=== PATIENT | male | born 1965 | race Caucasian/White ===

== ENCOUNTER → 2017-04-13 13:02 | Outpatient (CLI) | payer MEDICARE, MEDICAID | END | disposition home or self-care (01) | LOC: D.CT 13:00 | DX: R10.84 Generalized abdominal pain (principal) ==

== ENCOUNTER 2017-04-27 13:37 | Observation (INO) | payer MEDICARE, MEDICAID ==
[~2017-04-27] VITALS: Ht 177.8 cm; Wt 174.2 kg
--- NOTE | ~2017-04-27 | HEMODYNAMI ---
PATIENT:TOMAS COOPER MEDICAL RECORD: [id number] : 67 [facility] ADMISSION DATE: 04/27/17 Generatedon:04/28/201710:39 Patient name: TOMAS COOPER Patient #: [id number] SSN: D OB: 1965 Date of study: 04/28/2017 Page: Of Hemodynamic Procedure Report Patient Data Patient Demographics Procedure consent was obtained First Name: TOMAS Gender: Male Last Name: KENNETH : 1965 [facility] Initial: FREDERIC Age: 51 year(s) Patient #: [id number] Race: Unknown Additional ID: [id number] Contact details Address: [address] [place] [address] State: [place] City: [place] Zip code: [address] Past Medical History Allergies Allergen Reaction Date Comments Reported Penicillins 04/28/2017 Admission Admission Data Admission Date: 04/27/2017 Admission Time: 17:42 Room #: 2117 Procedure Procedure Types Cath Procedure Diagnostic Procedure [facility] w/Coronaries FFR/IVUS Intra-Coronary IVUS Initial PCI Procedure Coronary Stent Initial x2 Miscellaneous Procedures Moderate Sedation up to 45 minutes Procedure Description Procedure Date Procedure Date: 04/28/2017 Procedure Start Time: 10:05 Procedure End Time: 10:39 Procedure Staff Name Function Maico Chandler MD Performing Physician Naima Mcgovern RT Scrub Luis Garcia RT Scrub Sami Rodriguez RN Nurse Amita Montez RT Monitor Procedure Data Cath Procedure Fluoroscopy Diagnostic fluoroscopy Total fluoroscopy Time: 9.4 time: 9.4 min min Diagnostic fluoroscopy Total fluoroscopy dose: dose: 1452 mGy 1452 mGy Contrast Material Contrast Material Type Amount (ml) Isovue 300 165 Entry Location Entry Primary Successful Side Size Upsize Upsize Entry Closure Irvin ccessful Closure Location (Fr) 1 (Fr) 2 (Fr) Remarks Device Remarks Radial Right 6 Fr Mechanical artery Short Compression Estimated blood loss: 10 ml Diagnostic catheters Device Type Used For End Catheter Placement Diagnostic Terumo 5Fr LV Angiography [place] 110cm catheter Diagnostic Terumo 5Fr Left Coronary [place] 110cm catheter Angiography Diagnostic Terumo 5Fr Right Coronary [place] 110cm catheter Angiography Procedure Complications No complications Procedure Medications Medication Administration Route Dosage 0.9% NaCl I.V. 100 ml/hr Oxygen NC 2 l/min Heparin Flush Bag added to field 2 bags (1000units/500ml NS) Lidocaine 2% added to field 20 Versed I.V. 1 mg Fentanyl I.V. 50 mcg Versed I.V. 1 mg Fentanyl I.V. 50 mcg Radial Cocktail added to field 1 syringe (Verapomil 2mg/Nitro 400mcg/Heparin 1500units) Radial Cocktail I.A. 1 syringe (Verapomil 2mg/Nitro 400mcg/Heparin 1500units) Heparin Bolus I.V. 4000 units Integrilin (Bolus I.V. 9.5 ml 2mg/ml) Hemodynamics Rest Heart Rate: 53 (bpm) Snapshots Pre Cath Intra NCS Post Cath Vital Signs Time Heart Resp SPO2 etCO2 UE5hcml NIBP (mmHg) Rhythm Pain Sedation Rate (ipm) (%) (mmHg) (mmHg) Status Level (bpm) 9:30:15 53 13 99 0 0 233/92(146) NSR 0 (11) 10(A) , No pain 9:35:38 55 19 100 0 0 226/97(151) NSR 0 (11) 10(A) , No pain 9:40:52 50 17 98 0 0 194/86(133) NSR 0 (11) 10(A) , No pain 9:45:57 53 17 97 0 0 185/87(128) NSR 0 (11) 10(A) , No pain 9:52:05 53 16 97 0 0 206/82(119) NSR 0 (11) 10(A) , No pain 9:57:15 54 16 97 0 0 197/89(141) NSR 0 (11) 10(A) , No pain 10:02:26 52 14 97 0 0 213/91(127) NSR 0 (11) 10(A) , No pain 10:07:42 72 15 98 0 0 203/76(108) NSR 0 (11) 9(A) , No pain 10:12:53 57 17 95 0 0 189/76(128) NSR 0 (11) 9(A) , No pain 10:18:57 52 17 97 0 0 192/79(122) NSR 0 (11) 9(A) , No pain 10:24:09 51 13 98 0 0 196/82(140) NSR 0 (11) 9(A) , No pain 10:29:22 51 16 98 0 0 194/81(125) NSR 0 (11) 9(A) , No pain 10:34:36 50 18 99 0 0 198/79(137) NSR 0 (11) 10(A) , No pain Medications Time Medication Route Dose Verified Delivered Reason Note s Effectiveness by by 9:37:32 0.9% NaCl I.V. 100 Sami Sami Per physician ml/hr Jennifer Rodriguez RN RN 9:37:46 Oxygen NC 2 l/min Sami Sami Per physician Jennifer Rodriguez RN RN 9:38:03 Heparin Flush added 2 bags Sami Sami used for Bag to Lorigan Jennifer procedure (1000units/500ml RN RN NS) 9:38:22 Lidocaine 2% added 20ml Sami Sami used for to vial Lorigan Jennifer procedure RN RN 10:01:56 Versed I.V. 1 mg Sami Sami for sedation Jennifer Rodriguez RN RN 10:02:09 Fentanyl I.V. 50 mcg Sami Sami for sedation Jennifer Rodriguez RN RN 10:05:34 Versed I.V. 1 mg Sami Sami for sedation Jennifer Rodriguez RN RN 10:06:11 Fentanyl I.V. 50 mcg Sami Sami for sedation Jennifer Rodriguez RN RN 10:07:16 Radial Cocktail added 1 Sami Sami used for (Verapomil to syringe Lorigan [place] procedure 2mg/Nitro RN RN 400mcg/Heparin 1500units) 10:07:27 Radial Cocktail I.A. 1 Sami Maico for (Verapomil syringe Jennifer Chandler MD vasodilation 2mg/Nitro RN 400mcg/Heparin 1500units) 10:13:22 Heparin Bolus I.V. 4000 Sami Sami for units Jennifer Rodriguez anticoagulation RN RN 10:13:46 Integrilin I.V. 9.5 ml Sami Sami for (Bolus 2mg/ml) Jennifer Rodriguez antiplatelet RN RN therapy Procedure Log Time Note 9:14:39 Sami Rodriguez RN sent for patient. Start room use. 9:14:39 Time tracking: Regular hours 9:14:43 Plan of Care:Hemodynamics will remain stable., Cardiac rhythm will remain stable., Comfort level will be maintained., Respiratory function will remain adequate., Patient/ family verbilizes understanding of procedure., Procedure tolerated without complication., Recovers from procedure without complications.. 9:27:48 Patient received from PCU to CCL 1 Alert and oriented. Tansferred to table in Supine position. 9:27:49 Warm blankets applied, and amanda hugger turned on for patient comfort. 9:27:49 Correct patient and procedure confirmed by team. 9:27:51 Signed procedure consent form obtained from patient. 9:27:51 ECG and BP/O2 sat monitors applied to patient. 9:27:53 Vital chart was started 9:27:54 Full Disclosure recording started 9:36:24 Rhythm: sinus bradycardia 9:36:31 H&P Date Dictated: 04/28/2017 Within 30 days and on chart.. 9:36:32 Pre-procedure instructions explained to patient. 9:36:33 Pre-op teaching completed and patient verbalized understanding. 9:36:34 Family in waiting room. 9:36:35 Patient NPO since Midnight. 9:37:32 0.9% NaCl 100 ml/hr I.V. was administered by Sami Rodriguez RN; Per physician; 9:37:46 Oxygen 2 l/min NC was administered by Sami Rodriguez RN; Per physician; 9:38:03 Heparin Flush Bag (1000units/500ml NS) 2 bags added to field was administered by Sami Rodriguez RN; used for procedure; 9:38:22 Lidocaine 2% 20ml vial added to field was administered by Sami Rodriguez RN; used for procedure; 9:39:12 Patient allergic to Penicillins 9:39:15 Is the patient allergic to Iodine/contrast media? No. 9:39:17 Is patient on blood thinner?Yes 9:39:19 ACC The patient was administered the following blood thiners within the last 24 hours: ACCPlavix 9:39:21 Patient diabetic? No. 9:39:24 Previous problem with sedation/anesthesia? No ? 9:39:25 Snore? Yes 9:39:26 Sleep apnea? Yes 9:39:27 Deviated septum? No 9:39:28 Opens mouth fully? Yes 9:39:28 Sticks out tongue? Yes 9:39:30 Airway obstruction? No ? 9:39:32 Dentures? No ? 9:39:35 Pre procedure: right dorsailis pedis pulse 2+ Normal; easily identifiable; not easily obliterated 9:39:41 Modified Nuno's test Ulnar < 7 seconds 9:40:39 Zero performed for pressure channel P1 9:40:54 Patient pain scale 0/10 ?. 9:41:15 IV patent on arrival in right forearm with 0.9% NaCl at [facility]. 9:41:20 Lab results completed and on chart. 9:41:23 Right Radial & Right Groin area was prepped with chlora-prep and draped in sterile fashion 9:41:24 Alarms reviewed by R. N. 9:41:24 Sharps counted by scrub and verified by R.N. 9:41:26 Use device set Radial Dx 9:41:28 Acist Syringe opened to sterile field. 9:41:28 Medline Cath Pack opened to sterile field. 9:41:28 Bag Decanter opened to sterile field. 9:41:29 Terumo 6Fr Slender Glidesheath opened to sterile field. 9:41:29 St Frank 260cm J .035 wire opened to sterile field. 9:41:29 Acist Hand Control opened to sterile field. 9:41:30 Acist Manifold opened to sterile field. 9:41:30 Tegaderm 4 x 4 opened to sterile field. 9:41:30 MBrace Wrist Support opened to sterile field. 9:41:36 Baseline sample Acquired. 10:00:50 Final Timeout: patient, procedure, and site verified with staff and physician. All members of the team are in agreement. 10:00:53 Right Radial site verified by team. 10:00:56 Physical assessment completed. ASA score P 2 - A patient with mild systemic disease as per Maico Chandler MD. 10:00:58 Sedation plan: IV Moderate Sedation Versed, Fentanyl 10:01:56 Versed 1 mg I.V. was administered by Sami Rodriguez RN; for sedation; 10:02:09 Fentanyl 50 mcg I.V. was administered by Sami Rodriguez RN; for sedation; 10:05:17 Procedure started. 10:05:23 Local anesthetic to right radial artery with Lidocaine 2% by Maico Chandler MD.INITIAL ACCESS ONLY 10:05:34 Versed 1 mg I.V. was administered by Sami Rodriguez RN; for sedation; 10:06:11 Fentanyl 50 mcg I.V. was administered by Sami Rodriguez RN; for sedation; 10:06:14 A 6 Fr Short sheath was inserted into the Right Radial artery 10:07:16 Radial Cocktail (Verapomil 2mg/Nitro 400mcg/Heparin 1500units) 1 syringe added to field was administered by Sami Rodriguez RN; used for procedure; 10::27 Radial Cocktail (Verapomil 2mg/Nitro 400mcg/Heparin 1500units) 1 syringe I.A. was administered by Maico Chandler MD; for vasodilation; 10::27 A Diagnostic Terumo 5Fr [place] 110cm catheter was advanced over the wire and used for LV Angiography. 10:07:51 LV gram done using TENORIO 10:07:56 Injector settings: Ml/sec: 7, Volume: 15, 10:07:59 LV hemodynamics recorded. 10:08:03 EF : 55 % 10:08:36 Catheter removed. 10:09:23 Merit BasixCompak Inflation Kit opened to sterile field. 10:09:35 A Diagnostic Terumo 5Fr [place] 110cm catheter was advanced over the wire and used for Left Coronary Angiography. 10:09:38 A Diagnostic Terumo 5Fr [place] 110cm catheter was advanced over the wire and used for Right Coronary Angiography. 10:09:58 Catheter removed. 10:10:06 Biosyntechtronic Launcher 6Fr AR 2.0 guide catheter opened to sterile field. 10:11:40 6 Fr AR 2.0 guide catheter was inserted over the wire 10:13:22 Heparin Bolus 4000 units I.V. was administered by Sami Rodriguez RN; for anticoagulation; 10:13:34 WHISPER wire advanced. 10:13:46 Integrilin (Bolus 2mg/ml) 9.5 ml I.V. was administered by Sami Rodriguez RN; for antiplatelet therapy; 10:14:54 Wire removed. unable to cross lesion. 10:15:03 Guide Catheter removed. unable to cannulate vessel. 10:17:28 Princeton Portero Runway 6Fr ART 4.0 SH guide catheter opened to sterile field. 10:18:09 6 Fr ART 4.0 SH guide catheter was inserted over the wire 10:19:28 Guide Catheter removed. unable to cannulate vessel. 10:20:08 The [place] OTW 2.5 x 08 stent was advanced then removed because of failure to cross lesion 10:21:31 Providence Ekwok Eagleye IVUS Catheter opened to sterile field. 10:21:53 Stent catheter was removed intact over wire. 10:22:25 Wire removed. 10:22:32 Cordis 6FR XBLAD 4.0 guide catheter opened to sterile field. 10:23:01 6 Fr XBLAD 4.0 guide catheter was inserted over the wire 10:23:53 IVUS catheter advanced over wire. 10:23:57 IVUS pass to Circ lesion performed. 10:25:44 IVUS catheter removed over wire. 10:28:50 Inflation Number: 1 A [place] RX 3.5 x 15 stent was prepped and advanced across the Mid CX. The stent was deployed at 13 ZITA for 0:10 (min:sec). 10:29:29 Wire removed. damaged. 10:30:07 NEW WHISPER wire advanced. 10:30:35 Mata Whisper J 300cm 0.014 guide wire opened to sterile field. 10:33:15 Inflation Number: 1 A Kamari OTW 2.5 x 08 stent was prepped and advanced across the 1st Diag. The stent was deployed at 11 ZITA for 0:07 (min:sec). 10:33:37 Stent catheter was removed intact over wire. 10:33:38 Wire removed. 10:33:38 Guide catheter removed. 10:33:50 Sheath removed intact; hemostasis achieved with Mechanical Compression to the Right Radial artery. 10:33:55 Procedure ended.(Physican Out) 10:34:16 Fluoroscopy time 09.40 minutes. 10:34:21 Flurop Dose total: 1452 10:34:21 Fluoroscopy dose: 1452 mGy 10:34:26 Contrast amount:Isovue 300 165ml. 10:34:29 Sharps counted by scrub and verified by R.N. 10:34:31 TR band inflated with 12cc of air. 10:34:32 Insertion/operative site no bleeding no hematoma. 10:34:43 Post right radial artery:stable, clean and dry 10:34:44 Post Procedure Pulses reassessed and unchanged 10:34:47 Post-procedure physical assessment completed. ASA score P 2 - A patient with mild systemic disease as per Maico Chandler MD. 10:34:49 Post procedure rhythm: unchanged. 10:34:51 Estimated blood loss: 10 ml 10:34:53 Post procedure instruction explained to patient.Patient verbalizes understanding. 10:34:53 Patient needs reinforcement of post procedure teaching. 10:35:23 Procedure type changed to Cath procedure, Diagnostic procedure, LHC, LHC w/Coronaries, FFR/IVUS, Intra-Coronary IVUS Initial, PCI procedure, Coronary Stent Initial x2, Miscellaneous Procedures, Moderate Sedation up to 45 minutes 10:35:41 Terumo TR Band Large opened to sterile field. 10:35:50 Procedure Complication : No complications 10:35:53 See physician's report for complete and final results. 10:36:34 Mata Whisper J 300cm 0.014 guide wire opened to sterile field. 10:37:21 Procedure and supply charges have been captured, reviewed, submitted and are correct. 10:39:03 Vital chart was stopped 10:39:06 Report given to PCU. 10:39:09 Patient transfered to PCU with Bed. 10:39:17 Procedure ended. 10:39:17 Full Disclosure recording stopped 10:39:20 End room use (Document Last) Intervention Summary Intervention Notes Time ActionType Lesion and Equipment Action# Pressure Duration Attributes Used 10:20:08 Discard Kamari OTW Stent 2.5 x 08 stent 10:28:50 Place stent Mid CX [place] RX 1 13 00:11 3.5 x 15 stent 10:33:15 Place stent 1st Diag [place] OTW 1 11 00:08 2.5 x 08 stent Device Usage Item Name Manufacture Quantity Catalog Number Hospital Part Current Mini mal Lot# / Charge Number Stock Stock Serial# Code Ambar Acist 1 78977 474996 734662 014058 20 VivoText Inc Medline Cardinal 1 [id number] 868253 66153 916066 5 Cath Pack Health Bag Microtek 1 092445 27108 557222 5 Altobeam. Terumo 6Fr Terumo 1 [id number] 489927 206178 573751 [address] Frank 1 591079 751782 964960 272839 30 260cm J .035 wire Acist Hand Acist 1 10112 366171 093958 796576 5 Control Medical Systems Inc Acist Acist 1 21717 869760 287713 728773 5 The [employer] [place] [employer] Medical Systems Inc Tegaderm 4 3M 1 1626W 511812 439237 000179 5 x 4 MBrace Advanced 1 140-0250-00 856764 67682 825466 5 Wrist Vascular Support Dynamics Diagnostic Terumo 1 64-0350 271427 637284 953808 5 Terumo 5Fr [place] 110cm catheter Merit Merit 1 [id number] 882319 182167 167830 15 BasixCompak Medical Inflation Kit Medtronic Medtronic 1 [id number] 939819 72258 269422 1 Launcher 6Fr [place] 2.0 guide catheter Princeton Sci Princeton 1 [id number] 576132 954606 283130 [address] 6Fr Scientific ART 4.0 SH guide catheter Cordis 6FR Cardinal 1 [id number] 869312 870325 863212 3 XBLAD 4.0 Health guide catheter Providence Providence 1 [id number] 831257 993764 423539 8 Ekwok Eagleye IVUS Catheter [place] OTW Medtronic 1 [id number] 957086 29808 504160 5 [id number] 2.5 x 08 stent [place] RX 3.5 Medtronic 1 [id number] 453048 5460960 721688 5 [id number] x 15 stent Mata Mata 2 [id number] 415515 439279 875425 5 Whisper J Vascular 300cm 0.014 guide wire Terumo TR Terumo 1 [id number] 462948 581655 136077 40 Band Large Signature Audit [place] Stage Time Signature Unsigned Intra-Procedure 04/28/2017 Amita 10:39:38 AM Counts RT(R) Signatures Monitor : Amita Signature : Counts RT Date : Time : [facility] [address] [place] [address]
--- NOTE | ~2017-04-27 | HP ---
PATIENT: TOMAS COOPER MEDICAL RECORD: [id number] ACCOUNT: [id number] LOCATION:D. D.2117 : 67 ADMISSION DATE: 04/27/17 HISTORY AND PHYSICAL EXAMINATION HISTORY OF PRESENT ILLNESS: Mr. Cooper is a 51-year-old white male who presents to the office with precordial chest pain. It is in the center of his chest with no radiation. Initially, it began about 4 days ago. The pain has been going on all morning long. He describes it as dull, achy. He has had nausea, palpitations, tachycardia, dyspnea and dizziness. He has a known history of coronary artery disease and had previous intervention in the past. He has previously been followed by cardiology in [place]. He recently moved to the [place] area. PAST MEDICAL HISTORY: Significant for known CAD, hypertension, fractures of the left elbow with multiple surgeries, YOLI. PAST SURGICAL HISTORY: Include ORIF of the left elbow and several replacements, stent to the mid right and one to the proximal in March of 2016. ALLERGIES AND INTOLERANCES: TO AMOXICILLIN, AMPICILLIN, FISH, PENICILLINS, TRIAMTERENE, HYDROCHLOROTHIAZIDE. HOME MEDICATIONS: Include pravastatin 10 mg a day, amlodipine 10 mg a day, lisinopril 40 mg a day, Coreg 6.25 b.i.d., Nitrostat p.r.n., ProAir inhaler, nabumetone 750 b.i.d., Lyrica 150 b.i.d., potassium 10 mEq 2 t.i.d., baby aspirin a day, CPAP, MiraLax once a day, citalopram 20 mg 2 every day, niacin 500 mg every day. FAMILY HISTORY: Significant for depression, coronary artery disease, and type 2 diabetes. SOCIAL HISTORY: The patient is disabled. He is going through a divorce. He is not a smoker or drinker. 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 REVIEW OF SYSTEMS: No fever or chills. He has had some sweats and nausea, chest pain as described above with shortness of breath, palpitations, and dizziness. Denies any edema. Elbow brace on left elbow. PHYSICAL EXAMINATION: HEAD: Normocephalic. NECK: Soft. HEART: Regular. LUNGS: Clear. ABDOMEN: Soft. IMPRESSION: Chest pain, known coronary artery disease, hyperlipidemia, obstructive sleep apnea, hypertension. PLAN: Admit with cardiology consult. Cycle enzymes. Await cardiology recommendations. TRANSINT:[id number] Voice Confirmation ID: [id number] DOCUMENT ID: [id number] HISTORY AND PHYSICAL [id number] TOMAS COOPER MATTHEW DO CC: [id number] DICTATION DATE: 04/27/171807 MALT ROASTER: 04/27/17 192 ADM IN [place] [address] [place] [address]
--- NOTE | ~2017-04-27 | DS ---
PATIENT:TOMAS COOPER :67 MEDICAL RECORD: [id number] DISCHARGE SUMMARY ADMISSION DATE: 04/27/17 DISCHARGE DATE: 04/29/17 DISCHARGE DIAGNOSES: 1. Angina. 2. Coronary artery disease. 3. Percutaneous transluminal coronary angioplasty stent LAD diagonal, left circumflex and right coronary artery this admission. HOSPITAL COURSE: Mr. Cooper presents with unstable angina, found to have 3-vessel coronary artery disease, underwent successful PTCA stent of all territories. He was discharged home with the addition of aspirin and Plavix to his medical regimen. We will follow up with [facility] in 1 month. TRANSINT:[id number] Voice Confirmation ID: [id number] DOCUMENT ID: [id number] MARISABEL MISHRA MD CC: [id number] DICTATION DATE: 04/29/17 1114 BEER MERCHANT: 04/30/17 0159 DIS IN 04/29/17 [facility] [address] [id number]
--- NOTE | ~2017-04-27 | HEMODYNAMI ---
PATIENT:TOMAS COOPER MEDICAL RECORD: [id number] : 67 LOCATION:D. D.2117 ADMISSION DATE: 04/27/17 Generatedon:04/29/201711:16 Patient name: TOMAS COOPER Patient #: [id number] SSN: D OB: 1965 Date of study: 04/29/2017 Page: Of Hemodynamic Procedure Report Patient Data Patient Demographics Procedure consent was obtained First Name: TOMAS Gender: Male Last Name: KENNETH : 1965 [facility] Initial: FREDERIC Age: 51 year(s) Patient #: [id number] Race: Unknown Additional ID: [id number] Contact details [address]: [address] [place] [address] State: [place] City: [place] Zip code: [address] Past Medical History Allergies Allergen Reaction Date Comments Reported Penicillins 04/28/2017 Other allergy 04/29/2017 PCN Admission Admission Data Admission Date: 04/27/2017 Admission Time: 17:42 Room #: D.2117 Procedure Procedure Types Cath Procedure PCI Procedure Coronary Stent Initial Miscellaneous Procedures Moderate Sedation up to 15 minutes Procedure Description Procedure Date Procedure Date: 04/29/2017 Procedure Start Time: 10:59 Procedure End Time: 11:15 Procedure Staff Name Function Min Cramer RN Shift Mgr Maico Chandler MD Performing Physician Luis Garcia RT Monitor Naima Mcgovern RT Scrub Procedure Data Cath Procedure Fluoroscopy Diagnostic fluoroscopy Total fluoroscopy Time: 2.8 time: 2.8 min min Diagnostic fluoroscopy Total fluoroscopy dose: 425 dose: 425 mGy mGy Contrast Material Contrast Material Type Amount (ml) Isovue 300 47 Entry Location Entry Primary Successful Side Size Upsize Upsize Entry Closure Succes sful Closure Location (Fr) 1 (Fr) 2 (Fr) Remarks Device Remarks Femoral Right 7 Fr Exoseal artery Short Estimated blood loss: 10 ml Procedure Complications No complications Procedure Medications Medication Administration Route Dosage 0.9% NaCl I.V. 100 ml/hr Oxygen NC 2 l/min Versed I.V. 2 mg Fentanyl I.V. 100 mcg Heparin Flush Bag added to field 2 bags (1000units/500ml NS) Lidocaine 2% added to field 20 Heparin Bolus I.V. 4000 units Hemodynamics Rest Heart Rate: 54 (bpm) Snapshots Pre Cath Intra NCS Post Cath Vital Signs Time Heart Resp SPO2 etCO2 NI4gnvo NIBP (mmHg) Rhythm Pain Sedation Rate (ipm) (%) (mmHg) (mmHg) Status Level (bpm) 10:46:29 56 18 97 0 0 171/93(138) NSR 0 (11) 10(A) , No pain 10:51:13 51 16 94 0 0 131/77(100) NSR 0 (11) 10(A) , No pain 10:55:56 51 17 92 0 0 134/79(109) NSR 0 (11) 10(A) , No pain 11:00:39 53 16 92 0 0 141/82(105) NSR 0 (11) 9(A) , No pain 11:05:23 51 15 93 0 0 131/79(94) NSR 0 (11) 9(A) , No pain 11:10:45 57 16 93 0 0 132/81(108) NSR 0 (11) 9(A) , No pain 11:15:28 51 6 93 0 0 143/80(101) NSR 0 (11) 9(A) , No pain Medications Time Medication Route Dose Verified Delivered Reason Notes Effectiveness by by 10:57:50 0.9% NaCl I.V. 100 Sami Sami Per physician ml/hr Jennifer Rodriguez RN RN 10:58:09 Oxygen NC 2 Sami Sami Per physician l/min Jennifer Rodriguez RN RN 10:58:26 Versed I.V. 2 mg Sami Sami for sedation Jennifer Rodriguez RN RN 10:58:37 Fentanyl I.V. 100 Sami Sami for sedation mcg Jennifer Rodriguez RN RN 10:59:03 Heparin Flush added 2 Sami Sami used for Bag to bags Jennifer Rodriguez procedure (1000units/500ml field KELSIE IGLESIAS NS) 10:59:34 Lidocaine 2% added 20ml Sami Sami for local to vial Jennifer Rodriguez anesthetic field KELSIE IGLESIAS 11:05:10 Heparin Bolus I.V. 4000 Sami Sami for units Jennifer Rordiguez anticoagulation RN test facility engineer Log Time Note 10:15:36 Min Cramer RN sent for patient. Start room use. 10:33:26 Informed consent obtained and on chart 10:34:43 Time tracking: Regular hours 10:34:49 Plan of Care:Hemodynamics will remain stable., Cardiac rhythm will remain stable., Comfort level will be maintained., Respiratory function will remain adequate., Patient/ family verbilizes understanding of procedure., Procedure tolerated without complication., Recovers from procedure without complications.. 10:35:01 H&P Date Dictated: 04/28/2017 Within 30 days and on chart., H&P Addendum completed by physician on day of procedure. (MUST COMPLETE FOR ALL OUTPATIENTS). 10:35:54 Lab Result : Hemoglobin 15.5 g/dl 10:35:54 Lab Result : Hematocrit 42.6 % 10:35:54 Lab Result : BUN 10 mg/dl 10:35:54 Lab Result : Creatinine 0.8 mg/dl 10:36:01 Lab results completed and on chart. 10:36:36 Patient received from PCU to CCL 1 Alert and oriented. Tansferred to table in Supine position. 10:36:37 Correct patient and procedure confirmed by team. 10:36:37 Warm blankets applied, and amanda hugger turned on for patient comfort. 10:36:38 ECG and BP/O2 sat monitors applied to patient. 10:36:41 Pre-op teaching completed and patient verbalized understanding. 10:36:41 Pre-procedure instructions explained to patient. 10:36:43 Family in patients room. 10:36:44 Patient NPO since Midnight. 10:40:50 Patient allergic to Other allergyPCN 10:40:52 Is patient on blood thinner?Yes 10:40:52 Is the patient allergic to Iodine/contrast media? No. 10:40:55 ACC The patient was administered the following blood thiners within the last 24 hours: ACCPlavix 10:40:57 Patient diabetic? No. 10:41:10 Previous problem with sedation/anesthesia? No ? 10:41:11 Snore? Yes 10:41:12 Sleep apnea? Yes 10:41:13 Deviated septum? No 10:41:14 Sticks out tongue? Yes 10:41:15 Airway obstruction? No ? 10:41:16 Dentures? No ? 10:41:19 Patient pain scale 0/10 ?. 10:41:33 IV patent on arrival in right wrist with 0.9% NaCl at [facility]. 10:45:32 Vital chart was started 10:45:40 Baseline sample Acquired. 10:45:51 Rhythm: sinus bradycardia 10:45:52 Full Disclosure recording started 10:45:58 Pre procedure: right dorsailis pedis pulse 1+ Palpable, but thready & weak; easily obliterated 10:46:12 Right groin area was prepped with chlora-prep and draped in sterile fashion 10:46:14 Alarms reviewed by R. N. 10:46:15 Sharps counted by scrub and verified by R.N. 10:54:13 Use device set Femoral PCI 10:54:14 Tegaderm 4 x 4 opened to sterile field. 10:54:15 Acist Manifold opened to sterile field. 10:54:16 Merit BasixCompak Inflation Kit opened to sterile field. 10:54:17 Acist Syringe opened to sterile field. 10:54:18 Bag Decanter opened to sterile field. 10:54:18 Acist Hand Control opened to sterile field. 10:54:19 Medline Cath Pack opened to sterile field. 10:54:20 St Frank 260cm J .035 wire opened to sterile field. 10:54:25 Terumo 7Fr [place] Sheath opened to sterile field. 10:54:32 Mata Whisper J 300cm 0.014 guide wire opened to sterile field. 10:55:15 Zero performed for pressure channel P1 10:55:19 Zero performed for pressure channel P1 10:56:27 Physician arrived 10:56:28 Final Timeout: patient, procedure, and site verified with staff and physician. All members of the team are in agreement. 10:56:28 --------ALL STOP TIME OUT------ 10:56:31 Right groin site verified by team. 10:56:34 Physical assessment completed. ASA score P 2 - A patient with mild systemic disease as per Maico Chandler MD. 10:56:37 Sedation plan: IV Moderate Sedation Versed, Fentanyl 10:57:50 0.9% NaCl 100 ml/hr I.V. was administered by Sami Lorigan RN; Per physician; 10:58:09 Oxygen 2 l/min NC was administered by Sami Rodriguez RN; Per physician; 10:58:26 Versed 2 mg I.V. was administered by Sami Rodriguez RN; for sedation; 10:58:37 Fentanyl 100 mcg I.V. was administered by Sami Rodriguez RN; for sedation; 10:59:03 Heparin Flush Bag (1000units/500ml NS) 2 bags added to field was administered by Sami Rodriguez RN; used for procedure; 10:59:34 Lidocaine 2% 20ml vial added to field was administered by Sami Rodriguez RN; for local anesthetic; 10:59:48 Procedure started. 10:59:51 Local anesthetic to right femoral artery with Lidocaine 2% by Maico Chandler MD.INITIAL ACCESS ONLY 11:00:01 A 7 Fr Short sheath was inserted into the Right Femoral artery 11:02:34 Medtronic Launcher 7Fr AR 2.0 guide catheter opened to sterile field. 11:03:12 7 Fr AR2 guide catheter was inserted over the wire 11:04:24 whisper wire advanced. 11:05:10 Heparin Bolus 4000 units I.V. was administered by Sami Rodriguez RN; for anticoagulation; 11:07:21 Wire advanced across lesion. 11:07:51 Inflation Number: 1 A Elwood OTW 2.5 x 12 stent was prepped and advanced across the Dist RCA. The stent was deployed at 13 ZITA for 0:10 (min:sec). 11:08:06 Wire removed. 11:08:06 Stent catheter was removed intact over wire. 11:08:07 Guide catheter removed. 11:08:11 Cordis 7Fr Exoseal opened to sterile field. 11:08:20 Sheath removed intact; hemostasis achieved with Exoseal to the Right Femoral artery. 11:08:21 Procedure ended.(Physican Out) 11:11:06 Fluoroscopy time 02.80 minutes. 11:11:10 Fluoroscopy dose: 425 mGy 11:11:10 Flurop Dose total: 425 11:11:14 Contrast amount:Isovue 300 47ml. 11:11:15 Sharps counted by scrub and verified by R.N. 11:11:19 Insertion/operative site no bleeding no hematoma. 11:11:21 Post-op/insertion site Right Femoral artery dressed using a 4 x 4 and Tegaderm. 11:11:25 Post right femoral artery:stable, soft, clean and dry 11:11:26 Post Procedure Pulses reassessed and unchanged 11:11:31 Post-procedure physical assessment completed. ASA score P 2 - A patient with mild systemic disease as per Maico Chandler MD. 11:11:34 Post procedure rhythm: unchanged. 11:11:36 Estimated blood loss: 10 ml 11:11:38 Procedure and supply charges have been captured, reviewed, submitted and are correct. 11:11:38 Patient needs reinforcement of post procedure teaching. 11:11:38 Post procedure instruction explained to patient.Patient verbalizes understanding. 11:14:52 Procedure type changed to Cath procedure, PCI procedure, Coronary Stent Initial, Miscellaneous Procedures, Moderate Sedation up to 15 minutes 11:15:15 Procedure Complication : No complications 11:15:17 Vital chart was stopped 11:15:19 See physician's report for complete and final results. 11:15:21 Report given to PCU. 11:15:24 Patient transfered to PCU with Stretcher. 11:15:26 Full Disclosure recording stopped 11:15:26 Procedure ended. 11:15:31 End room use (Document Last) Intervention Summary Intervention Notes Time ActionType Lesion and Equipment Action# Pressure Duration Attributes Used 11:07:51 Place stent Dist RCA Kamari OTW 1 13 00:10 2.5 x 12 stent Device Usage Item Name Manufacture Quantity Catalog Hospital Part Current Minimal Lot# / Number Charge Number Stock Stock Serial# Code Tegaderm 4 3M 1 [id number] 066371 732654 5 x 4 Acist Acist 1 49605 013440 929168 230920 5 Manifold Medical [employer] Inc Merit Merit 1 ST3291 388400 628672 688443 15 BasixCompak Medical Inflation Kit Acist Acist 1 32838 297661 199204 434573 20 Syringe Medical Systems Inc Acist Hand Acist 1 82415 672309 230450 415643 5 Control Medical Systems Inc Bag Microtek 1 2001S 141364 34422 564796 5 DecUmaChaka Media [employer] Inc. Medline Cardinal 1 [id number] 565361 61984 423583 5 Cath Formerly [facility] Frank St Frank 1 035995 886745 956566 058482 30 260cm J .035 wire Terumo 7Fr Terumo 1 [id number] 336799 775479 802076 5 [place] Sheath Mata Mata 1 [id number] 729466 692583 965846 5 Whisper J Vascular 300cm 0.014 guide wire Medtronic Medtronic 1 [id number] 784130 222444 472873 0 Launcher 7Fr AR 2.0 guide catheter Elwood OTW Medtronic 1 [id number] 674323 63778 579834 5 [id number] 2.5 x 12 stent Cordis 7Fr Cardinal 1 EX700 038911 263341 118384 5 [facility] Signature Audit [place] Stage Time Signature Unsigned Intra-Procedure 04/29/2017 Luis Garcia 11:16:54 AM RT(R) Signatures Monitor : Luis Garcia RT Signature : Date : Time : [place] [id number] [place] [address]
--- NOTE | ~2017-04-27 | OP ---
PATIENT NAME: TOMAS COOPER MEDICAL RECORD: [id number] :67 LOCATION:D.M2 D.2117 ADMISSION DATE:04/27/17 SURGEON: MARISABEL MISHRA MD DATE OF OPERATION: 04/29/2017 PROCEDURES: 1. PTCA stent RCA. 2. Selective coronary angiography. INDICATION: Angina and coronary artery disease. PROCEDURE IN DETAIL: After informed consent was obtained and after detailed explanation of risks, benefits as well as alternative therapies, the patient elected to proceed with angiogram and angioplasty. The right femoral area was prepped and draped in normal sterile fashion. The right femoral artery was cannulated via modified Seldinger technique with placement of a 7-Yakut sheath. All catheters exchanged through this sheath. FINDINGS: The right coronary has 80% to 90% stenosis. This was addressed with a 2.5 x 12-mm Kamari. Result was 0% residual stenosis. OVERALL IMPRESSION: Successful PTCA stent of the distal RCA going from 80% to 90% initial stenosis to 0% residual. TRANSINT:[id number] Voice Confirmation ID: [id number] DOCUMENT ID: [id number] MARISABEL MISHRA MD CC: [id number] DICTATION DATE: 04/29/17 1113 SENIOR MECHANICAL TECHNICIAN: 04/29/17 1326 ADM IN [facility] [address] [place] [address]
[2017-04-27 14:15] LABS: HEMATOCRIT 41.2 % (42.0-54.0); HEMOGLOBIN 14.8 g/dL (13.5-17.5); IMMATURE GRANULOCYTES 0.2 % (0-5); LYMPHOCYTES 28.3 % (15-50); MCH 30.9 pg (26.0-34.0); MCHC 35.9 g/dL (31.0-37.0); NEUTROPHILS 53.5 % (40-80); PLATELET COUNT 227 10x3/uL (130-400); RBC 4.79 10x6/uL (4.20-6.10); RDW 13.3 % (11.5-14.5)
[2017-04-27 14:40] LABS: ALKALINE PHOSPHATASE 73 U/L (46-116); ALT (SGPT) 21 U/L (10-68); BILIRUBIN - TOTAL 0.79 mg/dL (0.2-1.3); CALC OSMOLALITY 275 mosm/kg (275-300); CALCIUM 8.3 mg/dL (8.5-10.1); CARBON DIOXIDE 29.9 mmol/L (21.0-32.0); CHLORIDE - SERUM 104 mmol/L (98-107); CKMB 1.6 U/L (0.0-3.6); CREATINE KINASE 70 UL (21-232); CREATININE - SERUM 0.9 mg/dL (0.6-1.3); GLUCOSE 87 mg/dL (74-106); PROTEIN - SERUM 6.9 g/dL (6.4-8.2); SODIUM 139 mmol/L (136-145); UREA NITROGEN 10 mg/dL (7-18); eGFR NON AFRICAN AMERICAN > 90 mL/min (90-120)
[2017-04-27 14:49] LABS: TROPONIN-I < 0.017 ng/mL (0.000-0.060)
[2017-04-27 14:51] LABS: POTASSIUM - SERUM 2.9 mmol/L (3.5-5.1)
[2017-04-27 16:33] LABS: APPEARANCE CLEAR (CLEAR); BILIRUBIN NEGATIVE (NEGATIVE); COLOR YELLOW (YELLOW); GLUCOSE NEGATIVE (NEGATIVE); KETONE NEGATIVE (NEGATIVE); LEUKOCYTE ESTERASE NEGATIVE (NEGATIVE); NITRITE NEGATIVE (NEGATIVE); PROTEIN NEGATIVE (NEGATIVE); UROBILINOGEN NORMAL (NORMAL)
[2017-04-27] MEDS ORDERED: LYRICA150 MG PO (18:24)
[2017-04-27] MEDS ORDERED: CELEXA20 MG PO (18:24)
[2017-04-27] MEDS ORDERED: RELAFEN750 MG PO (18:25)
[2017-04-27] MEDS ORDERED: ZESTRIL40 MG PO (18:26)
[2017-04-27] MEDS ORDERED: K-TAB10 MEQ PO (18:26)
[2017-04-27] MEDS ORDERED: MIRALAX17 GM PO (18:26)
[2017-04-27] MEDS ORDERED: NORVASC10 MG PO (18:28)
[2017-04-27] MEDS ORDERED: BAYER CHEWABLE81 MG PO (18:29)
[2017-04-27] MEDS ORDERED: COREG CR40 MG PO (18:29)
[2017-04-27] MEDS ORDERED: PRAVASTATIN SOD10 MG PO (18:30)
--- NOTE | 2017-04-27 18:31 | NUR ---
RECIVED FROM ER PER WC TO ROOM 2117. ADMIT ASSESSMENT PER RN
[2017-04-27 20:51] VITALS: BP 156/75
[2017-04-28 01:15] VITALS: BP 190/91
[2017-04-28 01:21] VITALS: BP 156/75; BMI 34.5
[2017-04-28 03:45] VITALS: BP 151/76
[2017-04-28 08:00] VITALS: BP 143/80
--- NOTE | 2017-04-28 09:30 | NUR ---
PRE-OPS GIVEN. TO CORN GRINDER BY BED.
[2017-04-28 10:18] VITALS: Ht 177.8 cm; Wt 174.2 kg
--- NOTE | 2017-04-28 11:00 | NUR ---
BACK FROM OUTSIDE SALES ASSOCIATE. VS WNL. RIGHT WRIST STABLE WITH TR BAND INTACT. WILL MONITOR.
[2017-04-28 12:00] LABS: BASOPHILS 1.7 % (0-2); EOSINOPHILS 9.7 % (0-7); HEMATOCRIT 42.6 % (42.0-54.0); HEMOGLOBIN 15.5 g/dL (13.5-17.5); IMMATURE GRANULOCYTES 1.6 % (0-5); MCH 30.9 pg (26.0-34.0); MCHC 36.4 g/dL (31.0-37.0); MONOCYTES 9.9 % (2-11); NEUTROPHILS 50.1 % (40-80); PLATELET COUNT 209 10x3/uL (130-400); RBC 5.01 10x6/uL (4.20-6.10); RDW 13.4 % (11.5-14.5); WBC 5.2 10x3/uL (4.8-10.8)
[2017-04-28 12:01] LABS: CALC OSMOLALITY 276 mosm/kg (275-300); CALCIUM 8.6 mg/dL (8.5-10.1); CARBON DIOXIDE 32.3 mmol/L (21.0-32.0); CHLORIDE - SERUM 104 mmol/L (98-107); CREATININE - SERUM 0.8 mg/dL (0.6-1.3); GLUCOSE 88 mg/dL (74-106); SODIUM 140 mmol/L (136-145); UREA NITROGEN 10 mg/dL (7-18); eGFR NON AFRICAN AMERICAN > 90 mL/min (90-120)
[2017-04-28 12:08] LABS: POTASSIUM - SERUM 3.7 mmol/L (3.5-5.1)
[2017-04-28 16:00] VITALS: BP 142/71
--- NOTE | 2017-04-28 20:55 | NUR ---
PT AWAKE, ALERT, ORIENTED, LYING IN BED, TR BAND TO WRIST STILL ON. I DID A SLOW RELEASE, NO BLEEDING, MINIMAL BRUISING. PT STATES HE IS FEELING BETTER THAN HE DID, DENIES ANY NEEDS. CONTINUE TO MONITOR PT CLOSELY. BED LOW, CALL LIGHT IN REACH, SIDE RAILS X 2, HOB 30 DEGREES.
[2017-04-28 21:26] VITALS: BP 150/76
[2017-04-29 08:16] VITALS: BP 160/85
--- NOTE | 2017-04-29 10:34 | NUR ---
PRE-OPS GIVEN. TO TOP TAPER MACHINE BY BED.
--- NOTE | 2017-04-29 11:11 | HP ---
PATIENT: TOMAS COOPER MEDICAL RECORD: [id number] ACCOUNT: [id number] LOCATION:D. D.2117 : 67 ADMISSION DATE: 04/27/17 HISTORY AND PHYSICAL EXAMINATION ADMITTING DIAGNOSES: 1. Unstable angina. 2. Coronary artery disease. 3. Previous percutaneous transluminal coronary angioplasty stent in [place] in October of last year. 4. Hypertension. 5. Hyperlipidemia. HISTORY OF PRESENT ILLNESS: Mr. Cooper presents with ongoing unstable angina since last Thursday, just like that of his previous angina when he needed a stent in [place] in October of last year; however, it has been unrelenting over the past few days, multiple episodes in an escalating fashion. PHYSICAL EXAMINATION: GENERAL APPEARANCE: Well-nourished, well-developed, appears stated age. Level of distress, comfortable. PSYCHIATRIC: Mental status, alert, normal affect. Orientation, oriented to time, place and person. EYES: Lids and conjunctiva, noninjected. No discharge, no pallor. ENT: Lips, teeth, gums, normal dentition. Oropharynx, no cyanosis, no pallor. NECK: Carotid arteries, bilateral normal upstroke, no bruits, no thrills. JUGULAR VEINS: No jugular venous pressure or distention. CERVICAL LYMPH NODES: Nontender, nonenlarged. THYROID: Not enlarged. Nontender. No nodules. LUNGS: Respiratory effort, unlabored. CHEST: Normal curvature. No thoracic deformity. No chest wall tenderness. Percussion, resonant. Auscultation, clear. No wheezes, no rales, no rhonchi. CARDIOVASCULAR: Precordial exam, nondisplaced. No heaves or pericardial thrills. Rate and rhythm, regular. Heart sounds, normal S1, normal S2. No S3, no gallop, no rub. Systolic murmur, not heard. Diastolic murmur, not heard. EXTREMITIES: No cyanosis, no edema. Peripheral pulses, full and equal in all extremities, except as noted. No bruits appreciated. ABDOMEN: Soft, nondistended. Normal aorta. No bruit. Nontender. No masses. Liver, nontender, no hepatomegaly. Spleen, nontender, no splenomegaly. MUSCULOSKELETAL: No joint tenderness. No joint swelling. No erythema. NEUROLOGICAL: Normal gait, normal strength, normal tone. SKIN: Warm and dry. REVIEW OF SYSTEMS: The patient reports easy bruising but reports no swollen glands. The patient reports no fever, no night sweats, no significant weight gain, no significant weight loss. No significant exercise tolerance. The patient reports no dry eyes, no irritation, no vision change. Patient reports no difficulty hearing and no ear pain. Patient reports no frequent nose bleeds or nose and sinus problems. Patient reports on arm pain on exertion. No shortness of breath while lying down. No history of heart murmur. Patient reports no cough, no wheezing or coughing up blood. Patient reports no abdominal pain, no vomiting. Normal appetite. No diarrhea and not vomiting blood. No nausea and no constipation. Patient reports no incontinence. No difficulty urinating. No hematuria. No increased frequency. Patient reports no muscle aches. No weakness, no arthralgias, no back pain. No swelling of the HISTORY AND PHYSICAL [id number] KENNETH,TOMAS FREDERIC extremities. Patient reports no abnormal mole, no jaundice, no rashes. Reports no loss of consciousness. No weakness and no numbness. No seizures, dizziness, or headaches. The patient reports no depression, no sleep disturbance, feeling safe in a relationship and no alcohol abuse. Patient reports on fatigue. Reports no runny nose or sinus pressure. No itching, no hives, and no frequent sneezing. OVERALL IMPRESSION: Unstable angina in a patient with a past history of coronary artery disease. We will proceed with coronary angiography. Further care depends upon findings of the angiography. TRANSINT:[id number] Voice Confirmation ID: [id number] DOCUMENT ID: [id number] MARISABEL MISHRA MD at 1111 CC: [id number] DICTATION DATE: 04/28/17812 MGMT SPECIALIST: 04/28/17 0852 ADM IN [place] [address] [place] [address]
--- NOTE | 2017-04-29 11:12 | OP ---
PATIENT NAME: TOMAS COOPER MEDICAL RECORD: [id number] :67 LOCATION:D.M2 D.2117 ADMISSION DATE:04/27/17 SURGEON: MARISABEL MISHRA MD DATE OF OPERATION: 04/28/2017 PROCEDURES: 1. PTCA stent to left circumflex. 2. PTCA stent to LAD diagonal. 4. Left heart catheterization. 5. Selective coronary angiography. 6. Left ventriculogram. 7. Intravascular ultrasound. INDICATION: Unstable angina. PROCEDURE IN DETAIL: After informed consent was obtained and after detailed explanation of risks, benefits as well as alternative therapies, the patient elected to proceed with angiogram and angioplasty. The right radial area was prepped and draped in normal sterile fashion. Right radial artery was cannulated via modified Seldinger technique with placement of 6-Mohawk sheath. All catheters exchanged through this sheath. FINDINGS: Left ventriculogram was performed in standard 30-degree TENORIO view, reveals good cardiac wall motion throughout all segments. Overall ejection fraction 55% to 60%. SELECTIVE CORONARY ANGIOGRAPHY: 1. Left main showed no significant angiographic disease. 2. Left anterior descending has previously placed stent. This is widely patent. However, there is a large diagonal system with 80% to 90% stenosis. 3. The left circumflex has 70% stenosis confirmed by intravascular ultrasound. 4. The right coronary has previously placed stents, these are widely patent; however, there is 80% to 90% stenosis distally. PTCA STENT OF THE LEFT CIRCUMFLEX AND LAD DIAGONAL: Both circumflex was addressed with a 3.5 x 15 mm Wheatley. The diagonal with a 2.5 x 8 mm Kamari. Result was 0% residual stenosis. OVERALL IMPRESSION: Successful percutaneous transluminal coronary angioplasty stent of the left circumflex and left anterior descending diagonal going from 70 to 80% initial stenosis to 0% residual stenosis. PLAN: PTCA stent of the RCA in the near future. TRANSINT:[id number] Voice Confirmation ID: [id number] DOCUMENT ID: [id number] MARISABEL MISHRA MD at 1112 CC: [id number] DICTATION DATE: 04/28/17 1111 DIRECTOR OF ONLINE EDUCATION: 04/28/17 1204 ADM IN [place] [id number] [place] [address]
--- NOTE | 2017-04-29 11:34 | NUR ---
BACK FROM AUTO GARAGE MECHANIC. VS WNL. RIGHT GROIN STABLE WITHOUT BLEEDING OR HEMATOMA NOTED. WILL MONITOR.
[2017-04-29 11:58] VITALS: BP 155/85
[2017-04-29] MEDS ORDERED: PLAVIX75 MG PO (14:22)
--- NOTE | 2017-04-29 15:30 | NUR ---
BED REST UP. GROIN STABLE. IV AND TELEMETRY DCD. DC PLANS GIVEN. UNDERSTANDING VOICED.
--- NOTE | 2017-04-29 15:38 | NUR ---
ESCORTED TO CAR BY W/C.
== END 2017-04-29 15:41 | disposition home or self-care (01) ==
LOC: D.ER 13:37 → OBSVTIME 17:42 → D.M2 17:42
PROVIDERS: Emergency Medicine; ADMIT Internal Medicine Interventional Cardiology
DX: I25.110 Atherosclerotic heart disease of native coronary artery with unstable angina pectoris (principal); Z95.5 Presence of coronary angioplasty implant and graft; I10 Essential (primary) hypertension; E78.5 Hyperlipidemia, unspecified; G47.33 Obstructive sleep apnea (adult) (pediatric)
CPT/HCPCS: 93458; C9600 ×2; C9601